=== PATIENT | male | born 1990 | race Caucasian/White ===

== ENCOUNTER 2019-03-18 08:27 | Inpatient (IN) | payer OTHER ==
[~2019-03-18] VITALS: Ht 190.5 cm; Wt 79.4 kg
[2019-03-18] MEDS ORDERED: ONDANSETRON HCL 4MG/2ML INJ IV STA (09:03)
[2019-03-18] MEDS ORDERED: SODIUM CHLORIDE 0.9% 1,000 ML IV ONE (09:03)
[2019-03-18] MEDS ORDERED: MORPHINE SULFATE 4 MG/ML CPJ (NOT FOR IM USE) IV STA (09:03)
[2019-03-18 09:23] LABS: LYMPHOCYTES % 17.6 % (20.0-50.0); MEAN CORPUSCULAR HEMOGLOBIN 31.8 pg (28.0-32.0); MEAN CORPUSCULAR VOLUME 92.1 fL (80.0-94.0); MEAN PLATELET VOLUME 7.6 fl (7.4-10.4); MONOCYTES % 4.1 % (2.0-8.0); NEUTROPHILS % 78.3 % (40.0-76.0); PLATELET 239 x1000/uL (130-400); RED BLOOD CELL COUNT 5.33 mill/uL (4.7-6.1)
[2019-03-18 09:28] LABS: CHLORIDE 104 mEq/L (98-107)
[2019-03-18 09:29] LABS: INR 1.1; PROTHROMBIN TIME 11.5 sec (9.6-11.0)
[2019-03-18] MEDS ORDERED: MORPHINE SULFATE 4 MG/ML CPJ (NOT FOR IM USE) IV ONE (10:00)
[2019-03-18] MEDS ORDERED: GABAPENTIN 100MG CAPSULE PO ONE (12:30)
[2019-03-18] MEDS ORDERED: GABAPENTIN 300MG CAPSULE PO ONE (12:45)
[2019-03-18 14:45] LABS: CLARITY URINE CLEAR (CLEAR); COLOR URINE YELLOW (YELLOW); KETONES URINE 3+ (NEGATIVE); LEUKOCYTE ESTERASE URINE NEGATIVE (NEGATIVE); NITRITE URINE NEGATIVE (NEGATIVE); OCCULT BLOOD URINE NEGATIVE (NEGATIVE); PH URINE 6.5 (4.5-8.0); PROTEIN URINE NEGATIVE (NEGATIVE); SPECIFIC GRAVITY URINE 1.023 (1.005-1.030)
[2019-03-18] MEDS: SODIUM CHLORIDE 0.45% 1,000 ML IV SCH (14:53)
[2019-03-18] MEDS ORDERED: CLONIDINE 0.1MG TABLET PO PRN (15:00)
[2019-03-18] MEDS ORDERED: LORAZEPAM 2MG/ML CPJ IV PRN (15:00)
[2019-03-18] MEDS ORDERED: DOCUSATE SODIUM 100MG CAPSULE PO PRN (15:00)
[2019-03-18] MEDS ORDERED: ACETAMINOPHEN 325MG TABLET PO PRN (15:00)
[2019-03-18] MEDS ORDERED: PIPERACILLIN/TAZ 3.375G PREMIX 50 ML IV SCH (15:00)
[2019-03-18] MEDS ORDERED: MAGNESIUM/ALUMINUM HYDROXIDE/SIMETHICONE 30ML UDC PO PRN (15:00)
[2019-03-18] MEDS ORDERED: IPRATROPIUM/ALBUTEROL 0.5-3(2.5)MG/3ML NEB NEB PRN (15:00)
[2019-03-18] MEDS ORDERED: DIPHENHYDRAMINE 50MG/ML VIAL IV PRN (15:00)
[2019-03-18] MEDS ORDERED: HYDROCODONE/ACETAMINOPHEN 5/325MG TABLET PO PRN (15:00)
[2019-03-18] MEDS ORDERED: NA PHOS,M-B/NA PHOS,DI-BA ENEMA 118ML PR PRN (15:00)
[2019-03-18] MEDS ORDERED: ONDANSETRON HCL 4MG/2ML INJ IV PRN (15:00)
[2019-03-18] MEDS ORDERED: GUAIFENESIN 200MG/10ML SUGAR FREE UDC PO PRN (15:00)
[2019-03-18] MEDS ORDERED: MORPHINE SULFATE 2 MG/ML CPJ (NOT FOR IM USE) IV PRN (15:00)
[2019-03-18] MEDS ORDERED: GABA800T97 PO (16:11)
[2019-03-18] MEDS ORDERED: LEVO50TA8 MT ×2 (16:13→18:51)
[2019-03-18 16:17] VITALS: BP 112/73
[2019-03-18] MEDS: ENOXAPARIN 40MG/0.4ML SYR SUBCUT SCH (17:45)
[2019-03-18] MEDS: PIPERACILLIN/TAZOBACTAM 3.375 G in DEXT 5% WATER 100 ML IV SCH (17:45)
[2019-03-18 18:07] LABS: CHLORIDE 105 mEq/L (98-107)
[2019-03-18 20:00] VITALS: BP 119/67
[2019-03-18] MEDS ORDERED: LEVOTHYROXINE SODIUM 50MCG TABLET PO SCH (21:00)
[2019-03-18] MEDS: GABAPENTIN 300MG CAPSULE PO SCH (23:12)
[2019-03-19] VITALS: BP 119/71
[2019-03-19] MEDS: PIPERACILLIN/TAZOBACTAM 3.375 G in DEXT 5% WATER 100 ML IV SCH ×2 (02:22→10:24)
[2019-03-19] MEDS: SODIUM CHLORIDE 0.45% 1,000 ML IV SCH (02:29)
[2019-03-19 04:00] VITALS: BP 123/70
[2019-03-19 07:08] LABS: BASOPHILS % 0.1 % (0.0-2.0); EOSINOPHILS % 0.1 % (0.0-5.0); HEMATOCRIT. 46.5 % (42.0-52.0); HEMOGLOBIN. 16.1 g/dL (14.0-18.0); LYMPHOCYTES % 24.6 % (20.0-50.0); MEAN CORPUSCULAR HEMOGLOBIN 31.7 pg (28.0-32.0); MEAN CORPUSCULAR VOLUME 91.5 fL (80.0-94.0); MEAN PLATELET VOLUME 8.3 fl (7.4-10.4); MONOCYTES % 11.7 % (2.0-8.0); NEUTROPHILS % 63.5 % (40.0-76.0); PLATELET 227 x1000/uL (130-400); RED BLOOD CELL COUNT 5.08 mill/uL (4.7-6.1); RED CELL DISTRIBUTION WIDTH 13.2 % (11.6-14.6)
[2019-03-19] MEDS ORDERED: LEVOTHYROXINE SODIUM 50MCG TABLET PO SCH (07:20)
[2019-03-19 08:00] VITALS: BP 115/63
[2019-03-19] MEDS: GABAPENTIN 300MG CAPSULE PO SCH ×2 (08:29→13:08)
[2019-03-19] MEDS: ENOXAPARIN 40MG/0.4ML SYR SUBCUT SCH (08:29)
[2019-03-19 08:39] LABS: CHLORIDE 106 mEq/L (98-107)
[2019-03-19 08:47] LABS: HDL CHOLESTEROL 39 mg/dL (40-59)
[2019-03-19 08:50] LABS: LDL CHOLESTEROL 76 mg/dL (5-100)
[2019-03-19] MEDS ORDERED: GABAPENTIN 300MG CAPSULE PO SCH (09:00)
[2019-03-19] MEDS ORDERED: GABAPENTIN 900 MG PO SCH (09:00)
[2019-03-19 09:54] VITALS: BP 115/63
[2019-03-19 12:00] VITALS: BP 113/67
== END 2019-03-19 14:48 | disposition home or self-care (01) | DRG 446 ==
LOC: ER 08:27 → CANBEDREQ 10:48 → 6EST 12:19 → ENRESERV 14:41
PROVIDERS: ADMIT Internal Medicine; ATTEND Internal Medicine
DX: K80.70 Calculus of gallbladder and bile duct without cholecystitis without obstruction (principal); G89.29 Other chronic pain; E86.0 Dehydration; M54.5 Low back pain; Z79.899 Other long term (current) drug therapy
CPT/HCPCS: 36415; 74176; 80048; 80053; 80061; 81003; 85025; 99285; J1650; J2270; J2405; J2543; J7030; J7060